=== PATIENT | female | born 1990 | race Two or more races ===

== ENCOUNTER 2024-11-18 13:33 | Inpatient (IN) | payer OTHER ==
[~2024-11-18] VITALS: Ht 170.2 cm; Wt 56.7 kg
[2024-11-18 13:28] VITALS: BP 122/76
[2024-11-18 13:43] LABS: COVID-19 AG NEGATIVE (NEGATIVE)
[2024-11-18 15:27] LABS: RH POSITIVE
[2024-11-24] MEDS ORDERED: METRONIDAZOLE/SODIUM CHLORIDE 500 MG/100 ML PIGGYBACK IV ONE (11:45)
[2024-11-24] MEDS ORDERED: CEFOXITIN SODIUM 2,000 MG VIAL IV ONE (12:00)
[2024-11-24] MEDS ORDERED: THROMBIN,HU/FIBRINOGEN/CALCIUM 10 ML SYRINGE TOP ONE (12:15)
[2024-11-24] MEDS ORDERED: POVIDONE-IODINE 118 ML BOTT TOP ONE (12:15)
[2024-11-24] MEDS ORDERED: INTEGRA PLUS C1 EACH (13:22)
[2024-11-24] MEDS ORDERED: FERROUS SULFAT325 MG (13:22)
[2024-11-24] MEDS ORDERED: OxyCODONE HCL 5 MG TABLET (ROXICODONE) PO PRN (13:30)
[2024-11-24] MEDS ORDERED: MORPHINE SULFATE 4 MG/ML CARTRIDGE IV PRN (13:30)
[2024-11-24] MEDS ORDERED: RINGERS SOLUTION,LACTATED 1,000 ML IV SCH (13:30)
[2024-11-24] MEDS ORDERED: KETOROLAC TROMETHAMINE 30 MG VIAL IV ONE ×2 (13:30→14:25)
[2024-11-24] MEDS ORDERED: MORPHINE SULFATE 4 MG/ML VIAL IV ONE (13:40)
[2024-11-24] MEDS ORDERED: CEFAZOLIN SODIUM 1,000 MG VIAL IV SCH (17:00)
[2024-11-24] MEDS ORDERED: SIMETHICONE 125 MG CAPSULE PO SCH (17:00)
[2024-11-24] MEDS ORDERED: METOCLOPRAMIDE HCL 5 MG/ML VIAL IV SCH (17:00)
[2024-11-24 17:05] LABS: BASO % 0.2 % (0.1-1.2); EOS # 0.01 (0.04-0.54); EOS % 0.0 % (0.7-7.0); LYMPH # 1.14 (1.18-3.74); LYMPH % 5.6 % (19.3-53.1); MEAN PLATELET VOLUME 11.20 fl (9.4-12.4); MONO # 0.99 (0.24-0.82); MONO % 4.8 % (4.7-12.5); NEUT # 18.26 (1.56-6.13); NEUT % 88.9 % (34.0-71.1); RED CELL DISTRIBUTION WIDTH 21.2 % (11.6-14.4)
[2024-11-24 17:28] LABS: BUN CREA RATIO 10.0 (7.0-25.0); CREATININE SERUM 0.68 mg/dL (0.55-1.02); GFR 100.27; GLUCOSE FASTING 98.0 mg/dL (65-100); OSMOLALITY SERUM 285.0 MOSM/KG (275-295)
[2024-11-24] MEDS ORDERED: ACETAMINOPHEN 500 MG GEL..CAP PO SCH (18:00)
[2024-11-24 18:26] VITALS: BP 103/63; O2SAT 99
[2024-11-24] MEDS ORDERED: CELECOXIB 200 MG CAPSULE PO SCH (21:00)
[2024-11-24] MEDS ORDERED: FAMOTIDINE/PF 20 MG/2 ML VIAL IV PUSH SCH (21:00)
[2024-11-24] MEDS ORDERED: GABAPENTIN 300 MG CAPSULE PO SCH (21:00)
[2024-11-24] MEDS ORDERED: DOCUSATE SODIUM 100MG CAP PO SCH (21:00)
[2024-11-25] VITALS: BP 106/66; O2SAT 97
[2024-11-25 03:41] LABS: BASO % 0.2 % (0.1-1.2); EOS # 0.09 (0.04-0.54); EOS % 1.0 % (0.7-7.0); LYMPH # 1.71 (1.18-3.74); LYMPH % 18.9 % (19.3-53.1); MEAN PLATELET VOLUME 10.40 fl (9.4-12.4); MONO # 0.73 (0.24-0.82); MONO % 8.1 % (4.7-12.5); NEUT # 6.46 (1.56-6.13); NEUT % 71.6 % (34.0-71.1); RED CELL DISTRIBUTION WIDTH 21.7 % (11.6-14.4)
[2024-11-25 04:04] LABS: BUN CREA RATIO 7.0 (7.0-25.0); CREATININE SERUM 0.84 mg/dL (0.55-1.02); GFR 78.57; GLUCOSE FASTING 88.0 mg/dL (65-100); OSMOLALITY SERUM 284.0 MOSM/KG (275-295)
[2024-11-25 08:00] VITALS: BP 105/69
[2024-11-25 16:00] VITALS: BP 92/61
[2024-11-25 23:51] VITALS: BP 103/60; O2SAT 99
[2024-11-26 08:00] VITALS: BP 107/67
[2024-11-26] MEDS ORDERED: NABUMETONE 500 MG TABLET PO ONE (10:15)
[2024-11-26] MEDS ORDERED: CYCLOBENZAPRINE HCL 5 MG TABLET PO NR (10:30)
== END 2024-11-26 11:02 | disposition home or self-care (01) | DRG 743 ==
LOC: O/R 11-24 10:33 → OB/GYN 11-24 12:10
PROVIDERS: Obstetrics & Gynecology; ADMIT Obstetrics & Gynecology Gynecologic Oncology; ATTEND Obstetrics & Gynecology Gynecologic Oncology
PROC: 0UB90ZZ Excision of Uterus, Open Approach (ICD-10-PCS; principal; 2024-11-24 12:15)
DX: D25.9 Leiomyoma of uterus, unspecified (principal)